=== PATIENT | male | born 1980 | race Hispanic/Latino ===

== ENCOUNTER 2018-09-30 06:21 | Emergency (ER) | payer OTHER ==
[2018-09-30 07:02] LABS: Basophils % (Auto) 0.8 % (0.0-1.8); Eosinophils % (Auto) 0.3 % (0.0-4.3); Hematocrit 47.5 % (35.5-45.6); Hemoglobin 16.2 gm/dl (11.8-15.2); Lymphocytes # (Auto) 0.6 K/mm3 (1.2-5.4); Mean Corpuscular HGB Conc 34 % (32-34); Mean Corpuscular Volume 96 fl (84-94); Monocytes # (Auto) 0.6 K/mm3 (0.0-0.8); Monocytes % (Auto) 11.3 % (0.0-7.3); Platelet Count 173 K/mm3 (140-440); Red Blood Count 4.93 M/mm3 (3.65-5.03); Red Cell Distribution Width 13.9 % (13.2-15.2)
[2018-09-30 07:19] LABS: Alanine Aminotransferase 57 units/L (7-56); Albumin 3.5 g/dL (3.9-5); BUN/Creatinine Ratio 9; Blood Urea Nitrogen 11 mg/dL (9-20); Calcium 8.1 mg/dL (8.4-10.2); Hemolysis Index 19
[2018-09-30] MEDS ORDERED: NACL 0.9% 1000 ML 1,000 ML IV ONE (07:23)
[2018-09-30] MEDS ORDERED: TORADOL IV ONE (07:23)
[2018-09-30 08:03] LABS: Bilirubin,Urine NEG (Negative); Blood,Urine NEG (Negative); Color,Urine Yellow (Yellow); Mucus,Urine FEW /HPF; Protein,Urine <15 mg/dL mg/dL (Negative); RBC,Urine < 1.0 /HPF (0.0-6.0)
--- NOTE | 2018-09-30 08:28 | Ultrasound Report ---
ULTRASOUND ABDOMEN LIMITED: TECHNIQUE: Transabdominal ultrasound with color Doppler interrogation. HISTORY: right upper quadrant abdominal pain. COMPARISON: none. FINDINGS: LIVER: The liver is echogenic and attenuates the ultrasound beam consistent with moderate to severe diffuse fatty infiltration. No obvious liver mass or enlargement. BILIARY SYSTEM: Gallbladder is partially contracted and appears to contain sludge. No shadowing gallstones or signs of acute cholecystitis. The CBD measures 4.9 mm. PANCREAS: Normal. RIGHT KIDNEY: Normal. PROXIMAL AORTA: Normal. ASCITES: None. IMPRESSION: Hepatic steatosis. Mild degree of sludge in the gallbladder.
[2018-09-30 08:42] LABS: INR 1.04 (0.87-1.13)
[2018-09-30 08:43] LABS: Partial Thromboplastin Time 34.2 Sec. (24.2-36.6)
--- NOTE | 2018-09-30 09:59 | Emergency Department Report ---
ED General Adult HPI - General Chief complaint: Abdominal Pain Stated complaint: FEVER, VOMITING, ABDOMINAL CRAMPING Time Seen by Provider: 09/30/18 07:15 Source: patient Mode of arrival: Ambulatory Limitations: No Limitations - History of Present Illness Initial comments: 37 y/o man with headache, diffusely of moderate degree and abdominal cramping since yesterday. He advises nausea but no vomiting. States the abdominal pain was worse in the right upper quadrant but that was mild in intensity. He denied photophobia or difficulty moving his neck. No neurological change. Symptoms or chest of several hours duration. The patient did feel like he had a fever but he had no shaking chills. He states last night he was not urinating way showed. He denied dysuria however. -: Gradual, hour(s) Location: head, abdomen Radiation: non-radiation Quality: aching Consistency: intermittent Improves with: none Worsens with: none Associated Symptoms: denies other symptoms. denies: confusion, chest pain, cough, diaphoresis, loss of appetite, malaise, shortness of breath, syncope - Related Data Allergies Allergy/AdvReac Type Severity Reaction Status Date / Time No Known Allergies Allergy Unverified 09/30/18 06:25 ED Review of Systems ROS: Stated complaint: FEVER, VOMITING, ABDOMINAL CRAMPING Other details as noted in HPI Constitutional: denies: chills, fever Eyes: denies: eye pain, eye discharge, vision change ENT: denies: ear pain, throat pain Respiratory: denies: cough, shortness of breath, wheezing Cardiovascular: denies: chest pain, palpitations Endocrine: no symptoms reported Gastrointestinal: abdominal pain, nausea. denies: diarrhea Genitourinary: as per HPI. denies: urgency, dysuria Musculoskeletal: denies: back pain, joint swelling, arthralgia Skin: denies: rash, lesions Neurological: headache. denies: weakness, numbness, paresthesias, confusion, abnormal gait, vertigo Psychiatric: denies: anxiety, depression Hematological/Lymphatic: denies: easy bleeding, easy bruising ED Past Medical Hx - Past Medical History Previous Medical History?: Yes Hx Hypertension: Yes Hx Asthma: Yes - Surgical History Past Surgical History?: Yes Additional Surgical History: spinal fusion - Social History Smoking Status: Never Smoker Substance Use Type: None ED Physical Exam - General Limitations: No Limitations General appearance: alert, in no apparent distress - Head Head exam: Present: atraumatic, normocephalic - Eye Eye exam: Present: normal appearance - ENT ENT exam: Present: mucous membranes dry (somewhat dry) - Neck Neck exam: Present: normal inspection, full ROM. Absent: tenderness, meningismus, lymphadenopathy, thyromegaly - Respiratory Respiratory exam: Present: normal lung sounds bilaterally. Absent: respiratory distress - Cardiovascular Cardiovascular Exam: Present: regular rate, normal rhythm. Absent: systolic murmur, diastolic murmur, rubs, gallop - GI/Abdominal GI/Abdominal exam: Present: soft, tenderness (very mild right upper quadrant tenderness negative Gallegos's), normal bowel sounds. Absent: distended, guarding, rebound, rigid - Rectal Rectal exam: Present: deferred - Extremities Exam Extremities exam: Present: normal inspection, full ROM, normal capillary refill. Absent: tenderness, pedal edema, joint swelling, calf tenderness - Back Exam Back exam: Present: normal inspection. Absent: CVA tenderness (R), CVA tenderness (L), muscle spasm, paraspinal tenderness, vertebral tenderness - Neurological Exam Neurological exam: Present: alert, oriented X3, CN II-XII intact. Absent: motor sensory deficit - Psychiatric Psychiatric exam: Present: normal affect, normal mood - Skin Skin exam: Present: warm, dry, intact, normal color. Absent: rash ED Course Vital Signs 09/30/18 09/30/18 06:25 09:06 Temperature 99.5 F Pulse Rate 125 H Respiratory 20 20 Rate Blood Pressure 153/94 O2 Sat by Pulse 94 Oximetry - Reevaluation(s) Reevaluation #1: Patient given IV fluids and Toradol. He was woken from sleep. He states he feels much better. He states he doesn't need any prescription and will follow- up with his primary care physician. 09/30/18 10:07 ED Medical Decision Making - Lab Data Result diagrams: 09/30/18 06:53 09/30/18 06:53 Laboratory Results - last 24 hr 09/30/18 09/30/18 09/30/18 06:53 06:53 07:36 WBC 5.1 RBC 4.93 Hgb 16.2 H Hct 47.5 H MCV 96 H MCH 33 H MCHC 34 RDW 13.9 Plt Count 173 Lymph % (Auto) 11.0 L [place] % (Auto) 11.3 H Eos % (Auto) 0.3 Baso % (Auto) 0.8 Lymph # 0.6 L [place] # 0.6 Eos # 0.0 Baso # 0.0 Seg Neutrophils % 76.6 H Seg Neutrophils # 3.9 PT 14.2 INR 1.04 APTT 34.2 Sodium 136 L Potassium 5.0 Chloride 99.6 Carbon Dioxide 23 Anion Gap 18 BUN 11 Creatinine 1.2 Estimated GFR > 60 BUN/Creatinine Ratio 9 Glucose 133 H Lactic Acid Calcium 8.1 L Magnesium Total Bilirubin 1.00 AST 44 H ALT 57 H Alkaline Phosphatase 70 Total Protein 6.6 Albumin 3.5 L Albumin/Globulin Ratio 1.1 Urine Color Urine Turbidity Urine pH Ur Specific [place] Urine Protein Urine Glucose (UA) Urine Ketones Urine Blood Urine Nitrite Urine Bilirubin Urine Urobilinogen Ur Leukocyte Esterase Urine WBC (Auto) Urine RBC (Auto) Urine Mucus 09/30/18 09/30/18 09/30/18 07:36 07:36 07:42 WBC RBC Hgb Hct MCV MCH MCHC RDW Plt Count Lymph % (Auto) [place] % (Auto) Eos % (Auto) Baso % (Auto) Lymph # [place] # Eos # Baso # Seg Neutrophils % Seg Neutrophils # PT INR APTT Sodium Potassium Chloride Carbon Dioxide Anion Gap BUN Creatinine Estimated GFR BUN/Creatinine Ratio Glucose Lactic Acid 1.90 Calcium Magnesium 1.80 Total Bilirubin AST ALT Alkaline Phosphatase Total Protein Albumin Albumin/Globulin Ratio Urine Color Yellow Urine Turbidity Clear Urine pH 7.0 Ur Specific [place] 1.020 Urine Protein <15 mg/dl Urine Glucose (UA) Neg Urine Ketones Neg Urine Blood Neg Urine Nitrite Neg Urine Bilirubin Neg Urine Urobilinogen 4.0 Ur Leukocyte Esterase Neg Urine WBC (Auto) 1.0 Urine RBC (Auto) < 1.0 Urine Mucus Few - Radiology Data Radiology results: report reviewed Critical care attestation.: If time is entered above; I have spent that time in minutes in the direct care of this critically ill patient, excluding procedure time. ED Disposition Clinical Impression: Viral illness, Dehydration Disposition: DC-01 TO HOME OR SELFCARE Is pt being admited?: No Does the pt Need Aspirin: No Condition: Stable Instructions: Viral Syndrome (ED), Dehydration (ED) Additional Instructions: Rest, increase fluids, Advil for pain. Tylenol for fever. Return to the emergency department any worsening symptoms. It would appear that you have a viral illness. Further workup may be necessary with your primary care physician. Referrals: usual, primary care physician [Other] - 2-3 Days Time of Disposition: 10:08
[2018-09-30 11:16] VITALS: BP 115/72
== END 2018-09-30 11:12 | disposition home or self-care (01) ==
LOC: ED 06:21
DX: B34.9 Viral infection, unspecified (principal); E86.0 Dehydration; I10 Essential (primary) hypertension; J45.909 Unspecified asthma, uncomplicated
CPT/HCPCS: 36415; 76705; 80053; 81001; 82140; 83735; 85025; 85610; 85730; 87040; 87086; 96361; 96374; 99284; J1885; J7030